=== PATIENT | male | born 1950 | race Caucasian/White ===

== ENCOUNTER 2020-06-16 12:24 | Emergency (ER) | payer OTHER, SELFPAY ==
[~2020-06-16] VITALS: Ht 175.3 cm; Wt 79.8 kg
[2020-06-16 12:27] VITALS: BP 118/80; Ht 175.3 cm; Wt 79.8 kg
== END 2020-06-16 13:42 | disposition home or self-care (01) ==
LOC: ED 12:24
DX: M79.10 Myalgia, unspecified site (principal); R07.0 Pain in throat; I10 Essential (primary) hypertension; Z20.828 Contact with and (suspected) exposure to other viral communicable diseases
CPT/HCPCS: U0003